=== PATIENT | male | born 1960 | race Caucasian/White ===

== ENCOUNTER 2016-10-07 13:28 | Emergency (ER) | payer SELFPAY ==
[~2016-10-07] VITALS: Ht 182.9 cm; Wt 98.5 kg
[2016-10-07 13:35] VITALS: Ht 182.9 cm; Wt 98.5 kg
[2016-10-07] MEDS ORDERED: LIDOCAINE 1% (MDV) 20 ML INJ SC ONE (14:30)
--- NOTE | 2016-10-07 14:53 | ERD ---
ER Documentation Chief Complaint Date/Time DATE: 10/07/16 TIME: 14:50 Chief Complaint r index finger lac tetanus vaccine within 5 years HPI This is a 56-year-old male presenting to emergency department for laceration to right index finger. Patient states he was washing dishes when he dropped a glass causing a laceration to right index finger. Patient clinically ran his finger under cold water and applied pressure using a paper towel. No loss of sensation, numbness or tingling. No loss of mobility. No swelling. ROS All systems reviewed and are negative except as per history of present illness. PMhx/Soc Medical and Surgical Hx: pt denies Medical Hx, pt denies Surgical Hx Hx Alcohol Use: No Hx Substance Use: No Hx Tobacco Use: No Smoking Status: Never smoker Physical Exam Vitals Vital Signs Date Time Temp Pulse Resp B/P Pulse Ox O2 Delivery O2 Flow Rate FiO2 10/07/16 13:35 98.5 79 18 137/76 98 Physical Exam Const: No acute distress, alert Head: Atraumatic Eyes: Normal Conjunctiva ENT: Normal External Ears, Nose and Mouth. Neck: Full range of motion..~ No meningismus. Resp: Clear to auscultation bilaterally Cardio: Regular rate and rhythm, no murmurs Abd: Soft, non tender, non distended. Normal bowel sounds Skin: 1.5 cm linear laceration running horizontal across palmar surface. no active bleeding. no surrounding erythema, warmth or drainage. No obvious foreign body. Back: No midline or flank tenderness Ext: No cyanosis, or edema Neur: Awake and alert Psych: Normal Mood and Affect Results 24 hrs Current Medications Medications (Trade) Dose Ordered Sig/Clary Route PRN Reason Start Time Stop Time Status Last Admin Dose Admin Lidocaine (Xylocaine 1% (Mdv) 20 ml) 20 ml ONCE ONCE SC 10/07/16 14:30 10/07/16 14:31 DC Procedures/MDM DIAGNOSTIC IMAGING REPORT Patient: TASNEEM BARBOUR : 1960 Age: 56 Sex: M MR #: [id number] DOS: 10/07/16 1445 Ordering MD: THONY SRIVASTAVA NP Location: [facility] Room/Bed: PROCEDURE: XR finger. CLINICAL INDICATION: Injury. Laceration with glass TECHNIQUE: PA, oblique and lateral views of the right index finger were obtained. COMPARISON: None available. FINDINGS: Mineralization is within normal limits. No fracture or osseous lesion is identified. Joint spaces are preserved. Soft tissues are unremarkable. No radiopaque foreign body is present. RPTAT:HJJR IMPRESSION: Unremarkable right index finger series. MDM: 56-year-old male presents emergency department for right index finger laceration today. Patient was washing dishes and he cut his right index finger with a glass accidentally. X-ray right index finger reviewed by radiologist is unremarkable. Laceration Repair by me: Anesthesia: 1% lidocaine Location: Right index finger, palmar aspect Tendon/Joint/Nerves: No injury Foreign body: None detected after copious irrigation and exploration Technique: 3 Simple Interrupted Sutures Complexity: No subcutaneous sutures/mucosal repair/ edge excision Post Closure Length: 1.5cm Patient's bleeding was easily controlled in the department and there is no indication of anemia. No evidence of compartment syndrome, neurologic injury, vascular injury, open joint, tendon laceration, or foreign body. Patient is appropriate for outpatient follow up. 48 hour wound check. Scar minimization instructions given. Return to ED for any high fever, chest pain, difficulty breathing, shortness breath, wheezing, vomiting, diarrhea, abdominal pain or any new or worsening symptoms. Patient verbalizes understanding. All questions answered at discharge. Departure Diagnosis: Primary Impression: Laceration Condition: Stable THONY SRIVASTAVA NP Oct 07, 2016 14:53
--- NOTE | 2016-10-07 15:36 | RADRPT ---
PROCEDURE: XR finger. CLINICAL INDICATION: Injury. Laceration with glass TECHNIQUE: PA, oblique and lateral views of the right index finger were obtained. COMPARISON: None available. FINDINGS: Mineralization is within normal limits. No fracture or osseous lesion is identified. Joint spaces are preserved. Soft tissues are unremarkable. No radiopaque foreign body is present. RPTAT:HJJR IMPRESSION: Unremarkable right index finger series. Physician Kami Date Time Electronically viewed and signed by Aron Paniagua Physician on 10/07/2016 15:35 JR/
== END 2016-10-07 16:13 | disposition home or self-care (01) ==
LOC: FTE 13:28
DX: S61.210A Laceration without foreign body of right index finger without damage to nail, initial encounter (principal); W25.XXXA Contact with sharp glass, initial encounter; Y92.9 Unspecified place or not applicable
CPT/HCPCS: 73140

== ENCOUNTER 2016-10-09 14:19 | Emergency (ER) | payer SELFPAY ==
[~2016-10-09] VITALS: Ht 182.9 cm; Wt 97.0 kg
[2016-10-09 14:21] VITALS: Ht 182.9 cm; Wt 97.0 kg
--- NOTE | 2016-10-09 14:59 | ERD ---
ER Documentation Chief Complaint Date/Time DATE: 10/09/16 TIME: 14:57 Chief Complaint WOUND CHECK HPI Patient is a 56-year-old male with no past medical history who presents to the ED for wound check. Patient has 3 sutures on his right index finger. States that was placed 2 days ago. Denies fever chills. Denies drainage from the site. No other complaints. ROS All systems reviewed and are negative except as per history of present illness. PMhx/Soc History of Surgery: No Anesthesia Reaction: No Hx Neurological Disorder: No Hx Respiratory Disorders: No Hx Cardiac Disorders: No Hx Psychiatric Problems: No Hx Miscellaneous Medical Probl: No Hx Alcohol Use: No Hx Substance Use: No Hx Tobacco Use: No FmHx Family History: No coronary disease, No diabetes, No other Physical Exam Vitals Vital Signs Date Time Temp Pulse Resp B/P Pulse Ox O2 Delivery O2 Flow Rate FiO2 10/09/16 14:21 98.0 83 19 130/76 99 Physical Exam GENERAL: Well-developed, well-nourished male. Appears in no acute distress. HEAD: Normocephalic, atraumatic. EYES: Pupils are equally reactive bilaterally. EOMs grossly intact. No conjunctival erythema. ENT: Moist mucous membranes. No uvula deviation. No kissing tonsils. No exudates. NECK: Supple. No lymphadenopathy or thyromegaly. No meningismus. negative kernig. negative brudinski. LUNG: Clear to auscultation bilaterally. No rhonchi, wheezing, rales or coarse breath sounds. HEART: Regular rate and rhythm. No murmurs, rubs or gallops. Extremities: Equal pulses bilaterally. No peripheral clubbing, cyanosis or edema. No unilateral leg swelling. 3 sutures on the right index finger. Healing well with no signs of erythema or drainage. No warmth NEUROLOGIC: Alert and oriented. Moving all four extremities. 5/5 strength in all extremities. Normal speech. Steady gait. SKIN: Normal color. Warm and dry. No rashes or lesions. Capillary refill < 2 seconds Procedures/MDM ER COURSE: I kept the patient and/or family informed of laboratory and diagnostic imaging results throughout the emergency room course. MEDICAL DECISION MAKING: This is a 56-year-old male who presents with wound check to his right index finger. Vital signs were reviewed. Patient is afebrile. Patient is not hypoxic. Wound shows no evidence of infection, foreign body, neurologic injury, vascular injury, open joint or tendon laceration. Patient appropriate for outpatient follow up. DISCHARGE: At this time, patient is stable for discharge and outpatient management with no new complaints during the ER course. Patient was sent home with instructions to return in 5 days for removal of sutures. Patient will be discharged home with instructions to recheck for new or worsening symptoms such as fever, nausea, weakness, LOC and to follow up with primary care in the next 1-2 days. Patient was advised to return to the ER for any new or worsening symptoms. Plan was discussed and patient and/or family understands and agrees. Home instructions were given. Departure Diagnosis: Primary Impression: Encounter for wound re-check Condition: Stable Patient Instructions: Wound Check, Lac F/U (No Infection) Additional Instructions: RETURN IN 5 DAYS FOR SUTURE REMOVAL Call your primary care doctor TOMORROW for an appointment during the next 1-2 days.See the doctor sooner or return here if your condition worsens before your appointment time. ALLISON ASHLEY PA-C Oct 09, 2016 14:59
== END 2016-10-09 14:49 | disposition home or self-care (01) ==
LOC: E/R 14:19
DX: Z48.01 Encounter for change or removal of surgical wound dressing (principal)
CPT/HCPCS: 99281

== ENCOUNTER 2016-10-16 14:23 | Emergency (ER) | payer MEDICAID ==
[~2016-10-16] VITALS: Ht 182.9 cm; Wt 79.0 kg
[2016-10-16 14:29] VITALS: Ht 182.9 cm; Wt 79.0 kg
--- NOTE | 2016-10-16 15:21 | ERD ---
ER Documentation Chief Complaint Date/Time DATE: 10/16/16 TIME: 15:17 Chief Complaint right index suture removal HPI Patient is a 56-year-old male who presents to the emergency department for suture removal. Patient sustained a laceration on his right index finger on 10-07 after being cut by glass. Patient has no concerns or complaints at this time. Patient has normal range of motion of his finger. Patient denies any pain fevers, chills, nausea, vomiting, numbness or tingling. Patient is up-to- date with his tetanus vaccination. ROS All systems reviewed and are negative except as per history of present illness. PMhx/Soc History of Surgery: No Anesthesia Reaction: No Hx Neurological Disorder: No Hx Respiratory Disorders: No Hx Cardiac Disorders: No Hx Psychiatric Problems: No Hx Miscellaneous Medical Probl: No Hx Alcohol Use: No Hx Substance Use: No Hx Tobacco Use: No Physical Exam Vitals Vital Signs Date Time Temp Pulse Resp B/P Pulse Ox O2 Delivery O2 Flow Rate FiO2 10/16/16 14:29 98.1 73 18 136/85 99 Physical Exam GENERAL: Well-developed, well-nourished male. Appears in no acute distress. HEAD: Normocephalic, atraumatic. EYES: Pupils are equally reactive bilaterally. EOMs grossly intact. No conjunctival erythema. ENT: Moist mucous membranes. No uvula deviation. No kissing tonsils. NECK: Supple. No meningismus. Normal range of motion of the neck. LUNG: Clear to auscultation bilaterally. No rhonchi, wheezing, rales or coarse breath sounds. HEART: Regular rate and rhythm. No murmurs, rubs or gallops. EXTREMITIES: Equal pulses bilaterally. No peripheral clubbing, cyanosis or edema. No unilateral leg swelling. NEUROLOGIC: Alert and oriented. Moving all four extremities without any difficulty. Normal speech. Steady gait. SKIN: Normal color. Warm and dry. No rashes or lesions. Linear laceration noted to the patient's right index finger. [address] No active discharge or bleeding. No erythema, swelling or warmth noted. No wound dehiscence noted. Wound appears to be healing well. Procedures/MDM MEDICAL DECISION MAKING: This is a 56-year-old male who presents for suture removal to a laceration he sustained on his right index finger. vital signs were reviewed. Patient is afebrile. The wound appears to be healing well with no concerns of acute infection at this time. No wound drainage or wound dehiscence noted. Tetanus is up-to-date. 3 sutures were removed without any difficulty. At this time, patient's presentation is most consistent with suture removal. Low suspicion for deep space infection, cellulitis, abscess, tendon injury, neurovascular injury, wound dehiscence. DISCHARGE: At this time, the patient is stable for discharge and outpatient management. Post-procedural wound care was discussed with the patient. I have instructed the patient to promptly return to the ER for any new or worsening symptoms including increasing pain, fever, warmth, redness or swelling. The patient and/ or family expressed understanding of and agreement with this plan. All questions were answered. Home care instructions were provided. Departure Diagnosis: Primary Impression: Encounter for removal of sutures Condition: Stable Patient Instructions: Suture Removal, No Complication Referrals: [facility] YOU HAVE RECEIVED A MEDICAL SCREENING EXAM AND THE RESULTS INDICATE THAT YOU DO NOT HAVE A CONDITION THAT REQUIRES URGENT TREATMENT IN THE EMERGENCY DEPARTMENT. FURTHER EVALUATION AND TREATMENT OF YOUR CONDITION CAN WAIT UNTIL YOU ARE SEEN IN YOUR DOCTORS OFFICE WITHIN THE NEXT 1-2 DAYS. IT IS YOUR RESPONSIBILITY TO MAKE AN APPOINTMENT FOR [facility]ARE. IF YOU HAVE A PRIMARY DOCTOR --you should call your primary doctor and schedule an appointment IF YOU DO NOT HAVE A PRIMARY DOCTOR YOU CAN CALL OUR PHYSICIAN REFERRAL HOTLINE AT IF YOU CAN NOT AFFORD TO SEE A PHYSICIAN YOU CAN CHOSE FROM THE FOLLOWING [facility] [address] [facility]. [facility] [address] [facility]. [facility] [address] [facility]. [facility] [address] [facility]. [facility] [address] [facility]. [facility]. [address] [facility] YOU HAVE RECEIVED A MEDICAL SCREENING EXAM AND THE RESULTS INDICATE THAT YOU DO NOT HAVE A CONDITION THAT REQUIRES URGENT TREATMENT IN THE EMERGENCY DEPARTMENT. FURTHER EVALUATION AND TREATMENT OF YOUR CONDITION CAN WAIT UNTIL YOU ARE SEEN IN YOUR DOCTORS OFFICE WITHIN THE NEXT 1-2 DAYS. IT IS YOUR RESPONSIBILITY TO MAKE AN APPOINTMENT FOR [facility] C[facility]. IF YOU HAVE A PRIMARY DOCTOR --you should call your primary doctor and schedule and appointment IF YOU DO NOT HAVE A PRIMARY DOCTOR YOU CAN CALL OUR PHYSICIAN REFERRAL HOTLINE AT . IF YOU CAN NOT AFFORD TO SEE A PHYSICIAN YOU CAN CHOSE FROM THE FOLLOWING [facility] INSTITUTIONS: [facility] [address] [place] [address] [facility] [address] [place] [address] [facility] [address] [place] [address] Additional Instructions: FOLLOW UP WITH YOUR PRIMARY CARE PHYSICIAN NEEDED.Return to this facility if you are not improving as expected. LAURA REYNA PA-C Oct 16, 2016 15:21
== END 2016-10-16 15:19 | disposition home or self-care (01) ==
LOC: FTE 14:23 → E/R 15:19
DX: Z48.02 Encounter for removal of sutures (principal)
CPT/HCPCS: 99281